=== PATIENT | female | born 1960 | race Caucasian/White ===

== ENCOUNTER 2019-09-28 08:06 | Inpatient (IN) | payer OTHER ==
[~2019-09-28] VITALS: Ht 152.4 cm; Wt 66.8 kg
--- NOTE | 2019-09-28 08:28 | NUR ---
[facility]
--- NOTE | 2019-09-28 09:05 | NUR ---
REPORT GIVEN TO VERO.
[2019-09-28] MEDS ORDERED: ONDANSETRON 2MG/ML, 2ML IVPush ONE (09:30)
[2019-09-28] MEDS ORDERED: SODIUM CHLORIDE FLUSH 10ML SYR IVF ONE (09:30)
[2019-09-28] MEDS ORDERED: MORPHINE SULFATE 4 MG/ML, 1ML IVPush PRN (09:30)
[2019-09-28 09:35] LABS: BASOPHILS # (AUTO) 0.04 x10^3/uL (0-0.1); BASOPHILS % (AUTO) 0 % (0-1); EOSINOPHILS # (AUTO) 0.05 x10^3/uL (0-0.4); EOSINOPHILS % (AUTO) 1 % (1-7); LYMPHOCYTES # (AUTO) 2.44 x10^3/uL (1-3.4); LYMPHOCYTES % (AUTO) 24 % (22-44); MD NO; MEAN CORPUSCULAR HEMOGLOBIN 31.1 pg (27.0-34.8); MEAN CORPUSCULAR HGB CONC 33.3 g/dL (32.4-35.8); MEAN CORPUSCULAR VOLUME 93.5 fL (80-100); MONOCYTES # (AUTO) 0.46 x10^3/uL (0.2-0.8); MONOCYTES % (AUTO) 5 % (2-9); NEUTROPHILS # (AUTO) 7.16 x10^3/uL (1.8-6.8); NEUTROPHILS % (AUTO) 71 % (42-75); PLATELET COUNT 314 x10^3/uL (130-400); RED BLOOD COUNT 4.95 x10^6/uL (3.82-5.3); RED CELL DISTRIBUTION WIDTH 13.8 % (9.6-15.2)
[2019-09-28 09:43] LABS: ALANINE AMINOTRANSFERASE 29 U/L (12-78); ALBUMIN 3.8 g/dL (3.4-5.0); ANION GAP 8 mmol/L (5-15); CALCIUM 9.6 mg/dL (8.5-10.1); CHLORIDE 109 mmol/L (98-107)
--- NOTE | 2019-09-28 09:46 | NUR ---
IV PLACED FOR CTA. PT DECLINES MORPHINE AT THIS TIME, STATES "MY PAIN ISN'T BAD ENOUGH FOR THAT". PT SAYS SX NOW IS SOB AND FEELS BETTER WHEN SITTING UPRIGHT. VSS, CALL LIGHT WITHIN REACH.
[2019-09-28 09:48] LABS: ALKALINE PHOSPHATASE 76 U/L (45-117); BILIRUBIN,TOTAL 0.3 mg/dL (0.2-1.0); CREATININE 0.67 mg/dL (0.55-1.02); TOTAL PROTEIN 7.7 g/dL (6.4-8.2); TROPONIN I < 0.015 ng/mL (0.000-0.045)
--- NOTE | 2019-09-28 10:11 | NUR ---
PT AMBULATORY TO BR WITHOUT PROBLEM.
--- NOTE | 2019-09-28 10:50 | NUR ---
PT BACK FROM CT, CALL LIGHT WITHIN REACH.
--- NOTE | 2019-09-28 11:20 | NUR ---
ALL RESULTS BACK, PT FOR RECHECK.
--- NOTE | 2019-09-28 12:15 | NUR ---
CONTINUE TO AWAIT ADMIT BED, PT RESTING QUIETLY ON JOSE L SANTIAGO.
--- NOTE | 2019-09-28 13:15 | NUR ---
PT UPDATED ON POC, OFFERED HOSPITAL BED WHILE ON HOLD IN ED WHICH PT DECLINED AT THIS TIME. CALL LIGHT WITHIN REACH.
[2019-09-28] MEDS ORDERED: BISACODYL 10 MG SUPP PR PRN (14:00)
[2019-09-28] MEDS ORDERED: ONDANSETRON 2MG/ML, 2ML IVPush PRN (14:00)
[2019-09-28] MEDS ORDERED: POLYETHYLENE GLYCOL 17 GM PACKET PO PRN (14:00)
[2019-09-28] MEDS ORDERED: NITROGLYCERIN 0.4 MG/SPRAY SL PRN (14:00)
[2019-09-28] MEDS ORDERED: NITROGLYCERIN 0.4 MG BOTTLE (25 TABS) SL PRN (14:00)
[2019-09-28] MEDS ORDERED: DOCUSATE 100 MG CAPSULE PO PRN (14:00)
[2019-09-28] MEDS ORDERED: ACETAMINOPHEN 325 MG TABLET PO PRN (14:00)
--- NOTE | 2019-09-28 14:00 | NUR ---
ED CARDIAC DIET TRAY ORDERED PER ADMIT ORDER.
[2019-09-28] MEDS ORDERED: ONDANSETRON 2MG/ML, 2ML ONE (14:08)
[2019-09-28] MEDS ORDERED: ENOXAPARIN 40 MG/0.4 ML ONE (14:08)
[2019-09-28] MEDS ORDERED: MORPHINE SULFATE 4 MG/ML, 1ML ONE (14:08)
[2019-09-28] MEDS: ENOXAPARIN 40 MG/0.4 ML SQ SCH (14:17)
--- NOTE | 2019-09-28 14:36 | NUR ---
REPORT TO ANDREW KEARNS, PT READY FOR TRANSPORT.
[2019-09-28 14:54] VITALS: BP 146/93
[2019-09-28 14:55] VITALS: BP 146/93
[2019-09-28] MEDS: NICOTINE 21 MG/24 HR PATCH.TD24 TD SCH (16:12)
[2019-09-28 16:18] LABS: TROPONIN I < 0.015 ng/mL (0.000-0.045)
[2019-09-28] MEDS: morphine SULFATE 10 MG/ML, 1ML IVPush PRN ×2 (18:25→21:44)
[2019-09-28 18:46] VITALS: BP 107/74
[2019-09-28 21:25] LABS: TROPONIN I < 0.015 ng/mL (0.000-0.045)
[2019-09-29 02:14] VITALS: BP 108/88
[2019-09-29 05:42] LABS: BASOPHILS # (AUTO) 0.03 x10^3/uL (0-0.1); BASOPHILS % (AUTO) 0 % (0-1); EOSINOPHILS # (AUTO) 0.14 x10^3/uL (0-0.4); EOSINOPHILS % (AUTO) 2 % (1-7); LYMPHOCYTES % (AUTO) 26 % (22-44); MD NO; MEAN CORPUSCULAR HEMOGLOBIN 31.3 pg (27.0-34.8); MEAN CORPUSCULAR HGB CONC 32.6 g/dL (32.4-35.8); MEAN CORPUSCULAR VOLUME 95.9 fL (80-100); MEAN PLATELET VOLUME 8.5 fL (7.4-10.4); MONOCYTES # (AUTO) 0.76 x10^3/uL (0.2-0.8); MONOCYTES % (AUTO) 8 % (2-9); NEUTROPHILS % (AUTO) 64 % (42-75); PLATELET COUNT 311 x10^3/uL (130-400); RED BLOOD COUNT 4.69 x10^6/uL (3.82-5.3); RED CELL DISTRIBUTION WIDTH 13.7 % (9.6-15.2)
[2019-09-29 05:43] LABS: CHLORIDE 104 mmol/L (98-107)
[2019-09-29 05:59] LABS: ALANINE AMINOTRANSFERASE 22 U/L (12-78); ALBUMIN 3.4 g/dL (3.4-5.0); ALKALINE PHOSPHATASE 71 U/L (45-117); ANION GAP 5 mmol/L (5-15); BILIRUBIN,TOTAL 0.5 mg/dL (0.2-1.0); CALCIUM 9.2 mg/dL (8.5-10.1); CREATININE 0.71 mg/dL (0.55-1.02); TOTAL PROTEIN 7.1 g/dL (6.4-8.2)
[2019-09-29] MEDS ORDERED: OMNIPAQUE 350 MG/ML, 100ML BOTTLE ONE (07:11)
[2019-09-29 07:33] VITALS: BP 112/75
[2019-09-29] MEDS ORDERED: ASPIRIN 81 MG TABLET CHEW PO SCH (09:00)
[2019-09-29] MEDS ORDERED: REGADENOSON 0.4 MG/5 ML SYRINGE ONE (10:54)
[2019-09-29 12:44] VITALS: BP 99/66
[2019-09-29] MEDS ORDERED: GADOTERATE 7.5 MMOL/15 ML SYR ONE (13:18)
[2019-09-29] MEDS: ENOXAPARIN 40 MG/0.4 ML SQ SCH (14:00)
[2019-09-29] MEDS: NICOTINE 21 MG/24 HR PATCH.TD24 TD SCH (15:43)
[2019-09-29] MEDS ORDERED: GABA100C PO (15:59)
[2019-09-29] MEDS ORDERED: ATORVASTATIN 40 MG TABLET PO SCH (21:00)
== END 2019-09-29 17:27 | disposition home or self-care (01) | DRG 313 ==
LOC: ED 11:21 → EDIP 11:26 → ED 12:09 → 5SO 14:53
PROVIDERS: ADMIT Family Medicine; ATTEND Internal Medicine
DX: R07.89 Other chest pain (principal); E87.1 Hypo-osmolality and hyponatremia; D72.829 Elevated white blood cell count, unspecified; F17.210 Nicotine dependence, cigarettes, uncomplicated; M50.30 Other cervical disc degeneration, unspecified cervical region; J44.9 Chronic obstructive pulmonary disease, unspecified; M48.02 Spinal stenosis, cervical region; M48.00 Spinal stenosis, site unspecified; Z80.7 Family history of other malignant neoplasms of lymphoid, hematopoietic and related tissues; Z87.01 Personal history of pneumonia (recurrent); Z90.710 Acquired absence of both cervix and uterus
CPT/HCPCS: 36415; 71045; 71275; 72156; 78452; 80053; 83735; 83880; 84100; 84145; 84443; 84484; 85025; 93005; 93017; 99285; G0378; J1650; J2405; J2785; Q9967; A9502; A9575; J2270